=== PATIENT | male | born 1945 | race Caucasian/White ===

== ENCOUNTER 2021-11-14 13:22 | Outpatient (CLI) | payer MEDICARE, BC | END 2021-11-14 23:59 | disposition home or self-care (01) | LOC: RAD 13:22 | PROVIDERS: ATTEND Family Medicine | DX: C34.90 Malignant neoplasm of unspecified part of unspecified bronchus or lung (principal); R13.12 Dysphagia, oropharyngeal phase; R49.0 Dysphonia; J38.00 Paralysis of vocal cords and larynx, unspecified | CPT/HCPCS: 74230 ==